=== PATIENT | female | born 1990 | race Caucasian/White ===

== ENCOUNTER 2017-05-12 14:23 | Inpatient (IN) | payer OTHER ==
[~2017-05-12] VITALS: Ht 170.1 cm; Wt 118.6 kg
[~2017-05-12 14:23] MED LIST: ATARAX,VISTARIL50 MG PO; BUSPAR15 MG PO; DEPAKOTE DR500 MG PO; GABAPENTIN TAB600 MG PO; LEXAPRO20 MG PO; NITROFURANTOIN100 M9 PO; PHENYTEK200 MG PO; TRAZODONE150 MG PO; TRILEPTAL PO; ZOFRAN4 MG PO
[2017-05-12 16:00] VITALS: BP 111/61
[2017-05-12 16:16] LABS: BASO % 0.3 % (0.0-1.0); EOS # 0.2 10*3/uL (0.0-0.4); HEMATOCRIT 40.6 % (37.0-47.0); HEMOGLOBIN 13.5 g/dl (12.0-16.0); LYMPH # 2.5 10*3/uL (1.3-4.4); LYMPH % 31.5 % (27.0-41.0); MEAN CELL VOLUME 91.9 fl (81.0-99.0); MEAN CORPUSCULAR HGB 30.5 pg (27.0-31.0); MEAN CORPUSCULAR HGB CONC 33.3 g/dl (33.0-37.0); MEAN PLATELET VOLUME 9.5 fl (9.6-12.3); MONO # 0.5 10*3/uL (0.1-1.0); MONO % 5.8 % (3.0-9.0); NEUT # 4.7 10*3/uL (2.3-7.9); NEUT % 59.1 % (47.0-73.0); PLATELET COUNT AUTOMATED 211 10*3/uL (130-400); RED BLOOD COUNT 4.42 10*6/uL (4.10-5.10); RED CELL DISTRI WIDTH 11.9 % (0-14.5)
[2017-05-12 16:17] VITALS: BP 111/61
[2017-05-12 16:25] LABS: INTERNATIONAL NORM RATIO 0.9 (2.0-3.5)
[2017-05-12 16:33] LABS: ALBUMIN 2.9 gm/dl (3.1-4.5); ALKALINE PHOSPHATASE 59 U/L (45-117); BUN 7 mg/dl (7-24); CHLORIDE 102 mmol/L (98-107); CREATININE 0.78 mg/dL (0.55-1.02); POTASSIUM 3.7 mmol/L (3.5-5.1); SGOT/AST 14 IU/L (3-35); SGPT/ALT 15 U/L (12-78); SODIUM 139 mmol/L (136-145); TOTAL PROTEIN 7.1 gm/dL (6.4-8.2)
[2017-05-12 16:37] LABS: BETA-HCG, QUANT < 1.0 mIU/mL (1-3); ETHYL ALCOHOL < 3.0 mg/dl (<3)
[2017-05-12 19:42] LABS: BILIRUBIN NEGATIVE (NEGATIVE); BLOOD TRACE-INTACT (NEGATIVE); CLARITY SL CLOUDY (CLEAR); COLOR YELLOW (YELLOW); GLUCOSE NEGATIVE (NEGATIVE); KETONE NEGATIVE (NEGATIVE); LEUKO ESTERASE 1+ (NEGATIVE); NITRITE NEGATIVE (NEGATIVE); SPECIFIC GRAVITY 1.025 (1.005-1.030); UROBILINOGEN 0.2 E.U./dl (0.2-1.0)
[2017-05-12 19:47] LABS: BACTERIA 2+; EPITHELIAL CELLS 16-30; MUCOUS 1+; RBC 0-2 rbc/hpf (0-2)
[2017-05-12 19:51] LABS: URINE AMPHETAMINES < 1000 (1000ng/ml); URINE BARBITURATES < 200 (200ng/ml); URINE BENZODIAZEPINES < 200 (200ng/ml); URINE CANNABINOIDS (THC) < 50 (50ng/ml); URINE COCAINE < 300 (300ng/ml); URINE METHADONE < 300 (300ng/ml); URINE OPIATES < 300 (300ng/ml); URINE PHENCYCLIDINE < 25 (25ng/ml)
[2017-05-12 20:00] VITALS: BP 116/60
[2017-05-13] VITALS: BP 97/53
[2017-05-13 04:00] VITALS: BP 117/64
[2017-05-13 08:00] VITALS: BP 110/50
[2017-05-13] MEDS ORDERED: TRAZODONE50 MG PO (10:24)
[2017-05-13] MEDS ORDERED: BUSPIRONE15 MG PO (10:24)
[2017-05-13] MEDS ORDERED: LEXAPRO20 MG PO (10:25)
[2017-05-13] MEDS ORDERED: MINIPRESS1 MG PO (10:26)
[2017-05-13 12:00] VITALS: BP 128/72
[2017-05-13 16:00] VITALS: BP 128/78
[2017-05-13 20:05] VITALS: BP 125/74
[2017-05-14 00:21] VITALS: BP 114/67
[2017-05-14 04:05] VITALS: BP 102/43
[2017-05-14 08:00] VITALS: BP 116/62
== END 2017-05-14 09:15 | disposition left against medical advice (07) | DRG 894 ==
LOC: 4E 14:23
PROVIDERS: Family Medicine
DX: F11.23 Opioid dependence with withdrawal (principal); E44.1 Mild protein-calorie malnutrition; Z68.41 Body mass index [BMI] 40.0-44.9, adult; F15.10 Other stimulant abuse, uncomplicated; G40.909 Epilepsy, unspecified, not intractable, without status epilepticus; F41.9 Anxiety disorder, unspecified; F32.9 Major depressive disorder, single episode, unspecified; E66.9 Obesity, unspecified; F17.210 Nicotine dependence, cigarettes, uncomplicated; R00.0 Tachycardia, unspecified; F14.10 Cocaine abuse, uncomplicated; Z53.21 Procedure and treatment not carried out due to patient leaving prior to being seen by health care provider; B19.20 Unspecified viral hepatitis C without hepatic coma; Z71.6 Tobacco abuse counseling; Z90.49 Acquired absence of other specified parts of digestive tract; Z81.1 Family history of alcohol abuse and dependence; Z81.3 Family history of other psychoactive substance abuse and dependence; Z88.8 Allergy status to other drugs, medicaments and biological substances; Z88.6 Allergy status to analgesic agent